=== PATIENT | female | born 1960 | race Caucasian/White ===

== ENCOUNTER 2016-06-22 09:54 | Emergency (ER) | payer OTHER ==
[~2016-06-22] VITALS: Ht 167.6 cm; Wt 90.7 kg
[~2016-06-22 09:54] MED LIST: MULTIPLE VITAM1 EAC2 PO; PERCOCET 325 MG1 TA2 PO; SLOW FE45 MG PO; VITAMIN D31000 UNI2 PO
[2016-06-22 09:58] VITALS: BP 128/84
--- NOTE | 2016-06-22 10:38 | ED ANKLE/FOOT INJURY COMPLAINT ---
History of Present Illness General Chief Complaint: Foot or Ankle Injury Stated Complaint: R FOOT INJURY Source: patient, old records Exam Limitations: no limitations Vital Signs & Intake/Output Vital Signs & Intake/Output Vital Signs Date Time Temp Pulse Resp B/P Pulse O2 O2 Flow FiO2 Ox Delivery Rate 06/22 0958 98.0 60 20 128/84 100 Room Air Allergies Coded Allergies: Penicillins (RASH 06/22/16) Reconcile Medications Cholecalciferol (Vitamin D3) 1,000 UNIT TABLET 1 TAB PO DAILY SUPPLEMENT ( Reported) Multivitamin (Multiple Vitamins) 1 EACH TABLET 1 TAB PO DAILY SUPPLEMENT ( Reported) Triage Note: TRIPPED ON HER PORCH AT [facility] INJURING RIGHT FOOT. TOOK [employer]TING AND [employer]. ICE GIVEN IN TRIAGE Triage Nurses Notes Reviewed? yes Occurred: just prior to arrival Duration: hour(s):, constant, continues in ED Timing: recent history Severity: moderate Pain/Injury Location: Right: Foot. Method of Injury: fall Modifying Factors: Improves With: immobilization, rest. Worsens With: movement. Associated Symptoms: swelling, GCS 15 since, stiffness LMP (ages 10-50): post menopausal : No Patient currently breastfeeds: No HPI: Prior to admission patient slipped on ice twisting her right ankle feeling a pop in her lateral aspect. She complains of sharp pain moderate severity worse with ambulation and palpation without radiation. She denies fever chills nausea vomiting diarrhea abdominal pain chest pain shortness breath headache dysuria rash bleeding. She also complains of contusion to left knee with full range of motion minimal discomfort. Past History Travel History Traveled to [place] past 21 day No Medical History Any Pertinent Medical History? none Surgical History Surgical History: non-contributory Psychosocial History What is your primary language Swedish Tobacco Use: Never used ETOH Use: occasional use Illicit Drug Use: denies illicit drug use Family History Hx Contributory? No Review of Systems Review of Systems Constitutional: Reports: no symptoms. EENTM: Reports: no symptoms. Respiratory: Reports: no symptoms. Cardiovascular: Reports: no symptoms. GI: Reports: no symptoms. Genitourinary: Reports: no symptoms. Musculoskeletal: Reports: see HPI, joint pain. Skin: Reports: no symptoms. Neurological/Psychological: Reports: no symptoms. Hematologic/Endocrine: Reports: no symptoms. Immunologic/Allergic: Reports: no symptoms. All Other Systems: Reviewed and Negative Physical Exam Physical Exam General Appearance: well developed/nourished, mild distress Head: atraumatic, normal appearance Eyes: Bilateral: normal appearance, PERRL, EOMI. Ears, Nose, Throat: normal pharynx, normal ENT inspection, hearing grossly normal Neck: normal inspection, supple, full range of motion Cardiovascular/Respiratory: normal breath sounds, normal peripheral pulses, regular rate/rhythm, no respiratory distress Back: normal inspection Leg/Knee/Thigh Left: normal range of motion, normal inspection Leg/Knee/Thigh Right: normal range of motion, normal inspection Ankle Left: normal inspection, normal range of motion Ankle Right: normal inspection, normal range of motion Foot Left: normal inspection, normal range of motion Foot Right: evidence of injury, tenderness, bone tenderness, limited range of motion, swelling, no tenderness over 4th MC Reflexes: 2+: knee (R), knee (L). Neuro/Vascular: normal motor function, normal sensation Tendon: normal tendon function Psychiatric: awake, alert, oriented x 3 Skin: intact, normal color, warm/dry Progress Differential Diagnosis: fracture, dislocation, sprain, contusion Plan of Care: Orders Procedure Date/time Status XRY-FOOT COMPLETE, RIGHT 06/22 1000 Active Diagnostic Imaging: Viewed by Me: Radiology Read. Discussed w/RAD: Radiology Read. Radiology Impression: Nondisplaced fracture at the base of the fifth metatarsal with the suggestion of intra-articular involvement. Poor visualization of the fourth PIP joint with possible subluxation. Correlation with exam is recommended. Departure Departure Time of Disposition: 1041 Disposition: HOME OR SELF CARE Condition: Stable Clinical Impression Primary Impression: Robles fracture Qualifiers: Encounter type: initial encounter Fracture type: closed Laterality: right Qualified Code: S92.351A - Displaced fracture of fifth metatarsal bone, right foot, initial encounter for closed fracture Referrals: MIKE LOPEZ,ARLENE ORR MD,GRAY Olsen (PCP/Family) THANIA HOLLIS,SAMANTHA Reyes Departure Forms: Customer Survey General Discharge Information RELEASE- WORK Procedures Splinting Location: right foot/ankle Manual Alignment Performed: No Pre-Made Type: boot Splint: ortho boot Splint Applied By: splint applied by other Pre-Proc Neuro Vasc Exam: normal Post-Proc Neuro Vasc Exam: normal
--- NOTE | 2016-06-22 10:41 | RADIOLOGY REPORT ---
EXAMINATION: XR FOOT, RIGHT CLINICAL INFORMATION: Trauma COMPARISON: None TECHNIQUE: AP, lateral, and oblique views of the right foot. FINDINGS: There is a nondisplaced transverse fracture at the metaphysis of the fifth metatarsal base, approximately 1.7 cm from the proximal tuberosity. There is faint curvilinear lucency extending to the TMT joint raising the possibility of intra-articular involvement. The fourth PIP joint is not well evaluated due to overlapping structures on both the frontal and oblique views. Subluxation may be present. Correlation with exam is suggested. Elsewhere no fracture or dislocation. Mild degenerative change at the first MTP joint. Alignment is otherwise anatomic. IMPRESSION: Nondisplaced fracture at the base of the fifth metatarsal with the suggestion of intra-articular involvement. Poor visualization of the fourth PIP joint with possible subluxation. Correlation with exam is recommended.
== END 2016-06-22 11:07 ==
LOC: ERH 09:54
DX: S92.351A Displaced fracture of fifth metatarsal bone, right foot, initial encounter for closed fracture (principal); W00.0XXA Fall on same level due to ice and snow, initial encounter
CPT/HCPCS: 73630-RT